=== PATIENT | female | born 2005 | race Caucasian/White ===

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

== ENCOUNTER 2024-04-05 23:32 | Emergency (ER) | payer MEDICAID ==
[~2024-04-05] VITALS: Ht 165.1 cm; Wt 79.5 kg
[2024-04-05 23:50] VITALS: TEMP 98.2; O2SAT 99
[2024-04-06] MEDS: ibuprofen tablet 400 MG TABLET PO ONE (02:41)
[2024-04-06] MEDS: acetaminophen 325mg tablet PO ONE (02:42)
[2024-04-06 02:56] VITALS: BP 129/68; PULSE 78; RESP 18
== END 2024-04-06 02:58 | disposition home or self-care (01) ==
LOC: ER 23:33
DX: S93.492A Sprain of other ligament of left ankle, initial encounter (principal); F17.200 Nicotine dependence, unspecified, uncomplicated; Y93.39 Activity, other involving climbing, rappelling and jumping off; Y93.89 Activity, other specified; Y92.89 Other specified places as the place of occurrence of the external cause; Y99.8 Other external cause status
CPT/HCPCS: 73610; 99283; A6449